=== PATIENT | female | born 1945 | race Caucasian/White ===

== ENCOUNTER 2022-07-18 20:24 | Emergency (ER) | payer MEDICARE ==
[~2022-07-18] VITALS: Ht 167.6 cm; Wt 55.6 kg
== END 2022-07-18 22:32 | disposition home or self-care (01) ==
LOC: ED 20:24
DX: B34.9 Viral infection, unspecified (principal); R10.9 Unspecified abdominal pain; R00.0 Tachycardia, unspecified; Z20.822 Contact with and (suspected) exposure to COVID-19
CPT/HCPCS: 36415; 71045; 80053; 83690; 83880; 84484; 85025; 87502; 96360; 99284-25; C9803; J7121; U0003

== ENCOUNTER 2022-07-21 10:55 | Inpatient (IN) | payer MEDICARE ==
[~2022-07-21] VITALS: Ht 167.6 cm; Wt 55.0 kg
--- OUTSIDE RECORDS SUMMARY | 2022-07-21 11:03 | XMS ---
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 Tj has no Care Guidelines for this patient. [facility] MO[facility] NOTE: Visits indicate total known visits. ED/C VISIT TRACKING (12 MO.) 2022 10:[address] [facility] [place] TYPE: Emergency COMPLAINT: - ANXIEY ATTACK 07/18/2022 20:25 [facility] [place] TYPE: Emergency COMPLAINT: - ABD PAIN AND NOT EATING INPATIENT VISIT TRACKING (12 MO.) No inpatient visits to display in this time frame [email or web address]
--- NOTE | 2022-07-21 16:10 | NUR ---
Walked pts spouse from the ER to her rm in 110 after spending 40 minutes with spouse in the ER hallway. I was asked by Dr. Iverson to see the spouse as was having and anxiety/panic attack. He was seen by the ER. He is crying through out our discussion. He is stating he is losing it and unable to cope. He was able to calm somewhat after a lengthy discussion. He is concerned is dying. All information was obtained from the spouse as the pt required sedation due to combativeness for work up. Pt has had dementia since 2017 and has been worsening. Today, pt no longer recognized her spouse of 45 years and thought she was a teenager. He states they have had one incident of wandering. She does not use any DME and is able to dress herself. He provides all household tasks, cook, shopping, cleaning. He states she is a DNR. I have requested the chart from Dr. Basurto's office. Per the office, pt was seen 1 x only in the summer to establish care. Spouse states they have no family or friends to assist. He does state Ni Trujillo Rn from the hospital is his nieghbor and the ER has called her. He states pt has a son, but they do not maintain contact. we had a lengthy discussion about placement vs CG. Spouse would like placement to a memory care or [facility]. I texted [facility] and attempted to call [facility], as these were places he requested. Intake personel were gone. Let him know I will work on this tomorrow and gave him a list of placement options.
--- NOTE | 2022-07-21 17:27 | NUR ---
PT WAS BROUGHT TO [facility] VIA STRETCHER SHE IS RESTING SOUNDLY DOES NOT RESPOND TO VOICE. R/T IS PRESENT ADJUSTS VAPOTHERM. 3 STAFF ASSIST TO TRANSFER TO THE BED. ASSESSMENT AND ADMISSION COMPLETED WITH ASSIST OF TO ANSWER QUESTIONS. BED ALARM IS SET. AND FRIEND HAVE REMAINED IN THE ROOM EVER SINCE. PT CONTINUES RESTING EYES CLOSED.
--- NOTE | 2022-07-21 18:24 | NUR ---
PT SATS ARE 100% CONSISTANTLY SINCE ADMISSION. R/T IN TO ADJUST VAPOTHERM. REMAINS IN THE ROOM, AGREES HE WILL GO HOME TO REST. PT SLEEPING SOUNDLY BED ALARM IS ON.
--- NOTE | 2022-07-21 18:56 | EKG ---
[facility] [address] [facility] [place] [address] Signed Normal sinus rhythm Left axis deviation Abnormal ECG No previous ECGs available Confirmed by BRENNEN SYLVESTER MD ([id number] on 07/21/2022 6:56:37 PM Electronically Signed By: BRENNEN SYLVESTER MD 07/21/22 1856 PATIENT NAME: DANIEL DELGADO Electrocardiogram DATE OF : 43 PHYSICIAN: BRENNEN SYLVESTER MD REPORT #: [id number] REPORT IS CONFIDENTIAL AND NOT TO BE RELEASED WITHOUT AUTHORIZATION
--- NOTE | 2022-07-21 19:19 | NUR ---
REPORT RECEIVED FROM DAY SHIFT RN. PT LYING IN BED WITH EYES CLOSED. RESPIRATIONS EVEN. VAPOTHERM IN PLACE AT 35L/35% FiO2. TELE #[address] HR 60'S. SpO2 100%. BED ALARM FOR SAFETY. WHITE BOARD UPDATED.
--- NOTE | 2022-07-21 21:01 | NUR ---
OXYGEN TITRATED TO 1L/NC. SpO2 MID TO HIGH 90'S. RESPIRATIONS EVEN. PT AROUSES BRIEFLY TO VOICE. BED ALARM FOR SAFETY. PT IN VIEW OF NURSES STATION.
--- NOTE | 2022-07-21 22:00 | NUR ---
PT RESTING WITH EYES CLOSED. ROUSES TO VOICE. PT ORIENTED TO FIRST NAME ONLY. EVENING ASSESSMENT COMPLETE. IVF INFUSING WNL. PT RESTING QUIETLY, NO SIGNS OF PAIN. SIPS OF WATER PROVIDED. ASSISTED WITH ORAL CARE. 1L/NC IN PLACE. SpO2 MID 90'S. SCATTERED WHEEZE AUSCULTATED. TELE #2. HR 70'S. WARM BLANKET PROVIDED. BED ALARM FOR SAFETY. PT IN VIEW OF NURSES STATION.
--- NOTE | 2022-07-21 22:20 | NUR ---
IN BED ALARM ALARMING. PT SITTING UP ON EDGE OF BED WITH BOTH LEGS OVER BED RAIL, TELE LEADS OFF, IV PULLED OUT AND GOWN OFF UPON ENTERING ROOM. BLOOD NOTED TO PTs LEFT ARM AND TO LINENS. PT ATTEMPTING TO GET UP OUT OF BED. THIS RN INTERVIENED AND STOPPED PT FROM GETTING OUT OF BED. OMAR NEAL AND OMAR ORDAZ IN TO ASSIST. 2PA FROM BED TO BSC. PT HAS UNSTEADY GAIT NOTED. LINENS CHANGED. 2PS FROM BSC BACK TO BED. OMAR MOLINA IN TO ASSIST. NEW GOWN PROVIDED. NEW TELE LEADS PLACED. OMAR MOLINA STARTED NEW IV. NO OTHER NEEDS FROM THIS RN AT THIS TIME.
--- NOTE | 2022-07-21 23:04 | NUR ---
PT FOUND ON SIDE OF BED WITH GOWN, IV, AND TELE LEADS REMOVED. BLOOD NOTED ON LINENS AND GOWN. BLEEDING IN LEFT AC STOPPED. SKIN CLEANED. UP TO BSC WITH 2PA TO ATTEMPT TO VOID WITH NO RESULTS. GAIT WEAK. PT BACK TO BED. ABLE TO FOLLOW SIMPLE COMMANDS. NEW IV PLACED BY SENIOR DESIGN ENGINEERING SPECIALIST RN. TELE LEADS AND CPOX BACK ON. OXYGEN TITRATED WITH ACTIVITY. SpO2 LOW 80'S WITH 1L/NC, OXYGEN TITRATED UP TO 5L WITH ACTIVITY. INCREASES RESPIRATIONS AND WHEEZE NOTED. PT BLADDER SCANNED FOR [address] SYLVESTER NOTIFIED. NEW TELEPHONE ORDERS RECEIVED FOR PRN NEB TX VERIFIED WITH READBACK METHOD. BED ALARM IN PLACE. CALL LIGHT IN REACH.
--- NOTE | 2022-07-22 00:17 | NUR ---
PT ABLE TO REPOSITION SELF TO RIGHT SIDE. EYES CLOSED. IN ROOM. BED ALARM FOR SAFETY.
--- NOTE | 2022-07-22 01:10 | NUR ---
PT LYING ON RIGHT SIDE WITH EYES CLOSED. SpO2 87% ON 1L/NC. OXYGEN TITRATED TO 4L/NC. PT SpO2 92% AT THIS TIME. HR 80.
--- NOTE | 2022-07-22 02:15 | NUR ---
PT RESTING IN BED WITH EYES CLOSED. PT NOT DISTURBED FOR VS AT THIS TIME. REMAINS IN ROOM. NO NEEDS VOCALIZED.
--- NOTE | 2022-07-22 04:11 | NUR ---
PT RESTING WITH EYES CLOSED. RESPIRATIONS EVEN AND NON LABORED AT THIS TIME. OXYGEN TITRATED DOWN TO 3L/NC. AT BEDSIDE. SANDWICH BOX PROVIDED AND COUCH MADE FOR TO STAY.
--- NOTE | 2022-07-22 05:11 | NUR ---
PT AWAKE IN BED. 2PA TO BR TO VOID. GAIT UNSTEADY. PT REQUIRES FREQUENT QUEING. ABLE TO DO OWN DUKE CARE. BACK TO BED, GORGE FAIR. INCREASED RESPIRATIONS AND WHEEZE NOTED WITH ACTIVITY. SpO2 93% ON 3L/NC. HR UP TO 100'S. SIPS OF WATER TAKEN. PT REPOSITIONED SELF TO RIGHT SIDE. BED ALARM FOR SAFETY. CALL LIGHT IN REACH. PT IN VIEW OF NURSES STATION.
--- NOTE | 2022-07-22 07:10 | NUR ---
report from Angela rn, pt eyes closed resp even, call light in reach with bed alarm on. updated whiteboard.
--- NOTE | 2022-07-22 08:50 | NUR ---
Called and spoke with Bhargavbrianna from [facility]. They do have a room for a couple. Spouse now wanting to go to [facility] with his . Face sheet, ER note, H&P, med list, nurses notes faxed.
--- NOTE | 2022-07-22 09:15 | NUR ---
Called and spoke with Marilyn from [facility]. They do have a room for a couple. Their management is out today,but she will call them.I will fax chart. Spouse now wanting to go to [facility] with his . Face sheet, ER note, H&P, med list, nurses notes faxed.
--- NOTE | 2022-07-22 10:39 | NUR ---
Spoke with Amilcar at [facility]. They will be having a room open in the near future for a couple. He asks for Chris to visit their facility. To room, and he has not returned at this time. Will leave a brochure.
--- NOTE | 2022-07-22 13:41 | NUR ---
PT ASSISTED FROM BED TO AMB 2 PERSON TO BATHROOM TO VOID 100 ML PLUS MISSED HAT. DKUE CARE AND NEW ATTENDS - ASSISTED TO BRUSH TEETH AT SINK - PT CONFUSED AND STARTING TO GET AGITATED BUT RE DIRECTABLE, LUNGS CONGESTED WITH AUDIBLE WHEEZE AND SOB NOTED WHILE WALKING WITH PT. LINEN FRESHENED AND PT BACK TO BED WITH HOB UP, ENC. OXYGEN ON AND 2L NC 93%. TELE DC. PT CONFUSED WITH CALL LIGHT IN HAND - NON PRODUCTIVE COUGH. DR WAS ABLE TO WITNESS PT MOVING IN ROOM WITH STAFF AND INCREASING AGITATION - 1 MG OF IV HALDOL GIVEN. IV FLUID AT 50 ML HR- PT REFUSING TO DRINK ORAL FLUIDS AT THIS TIME. WILL CONT. TO ENCOURAGE. SKIN WHILE UP IN BATHROOM WAS WNL INTACT.
--- NOTE | 2022-07-22 14:00 | NUR ---
Returned call to Ni Trujillo. She is with Chris, and updated given. Chart has been sent to 3 facilities for possible placement. I suggested they call and go visit to check prices and view. Chris has the placement sheet with names and phone numbers. Ni will assist him.
--- NOTE | 2022-07-22 14:39 | NUR ---
PT SITTING UP IN BED, SMILED WHEN I ENTERED HER RM. PTS' SPOUSE LINDSEY NOT IN WITH PT AT THIS TIME. HAD PLEASANT VISIT,PT THANKED ME FOR COMING. PT SEEMS PLEASANTLY CONFUSED.
--- NOTE | 2022-07-22 14:51 | NUR ---
PT OUT OF CHAIR - ALARM ON - STANDING UP TAKING OFF OXYGEN AND TRYING TO PULL OUT IV. PT ASSISTED TO WALK TO BR TO VOID -
--- NOTE | 2022-07-22 16:19 | NUR ---
CALL FROM DR HAUSER TO UPDATE ON PT STATUS - PT IN WITH ALARM - RESTLESS AND IN SIGHT OF NURSES STATION.
--- NOTE | 2022-07-22 18:27 | NUR ---
assisted pt back to bed from the bathroom, pt here and also jono family friend. pt is very flat - declined any food or drink offers from this rn, pt is refusing oxygen and fluids at this point. pt vitals attempted and she removed the bp cuff before it was done - pt was ok with us trying later. 81% room air and refuses nc oxygen at this time. temp is 97 temporal, hr 90. pt in ch with at bedside, pt very audible wheeze noted. void 300 ml when she was up to br - very confused and disoriented - restless.
--- NOTE | 2022-07-22 19:05 | NUR ---
REPORT RECEIVED FROM KAREEN Moon RN. PT SITTING UP IN CHAIR WITH EYES CLOSED. RR EVEN AND UNLABORED. ON COUCH AND FAMILY FRIEND IN ROOM. NO NEEDS REPORTED OR IDENTIFIED AT THIS TIME. CALL LIGHT IN REACH.
--- NOTE | 2022-07-22 19:50 | NUR ---
pt SITTING UP IN CHAIR. AND FAMILY FRIEND AT BEDSIDE. pt ON RA, 2L OXYGEN BY OXYMASK APPLIED. pt WEARING MASK. ENSURE DRINK PROVIDED. pt TAKING DRINKS OF VANILLA ENSURE. NO ADDITIONAL REQUESTS.
--- NOTE | 2022-07-22 20:40 | NUR ---
IN WITH OMAR CAVAZOS. PT SITTING UP IN CHAIR. SBA FROM CHAIR TO RESTROOM AND TO BED. VITALS AND I&Os COMPLETE. ASSESSMENT COMPLETE. LUNG SOUNDS WHEEZY THROUGHOUT ALL LOBES. BOWEL TONES ACTIVE. HEART RATE TACHYCARDIC. PRN MEDICATION ADMINISTERED, SEE MAR. MEDICATION ADMINISTERED CRUSHED AND IN PUDDING. PT TAKED PO CRUSHED MEDICATION WITH NO ISSUES. PT CONTINUES TO GET UP OUT OF BED AND GO BACK TO RESROOM. NO OUTPUT NOTED. PT BACK IN BED. OMAR CAVAZOS IN ROOM TO ADMINISTER PRN PAIN MEDICATION. NO OTHER NEEDS FROM THIS RN AT THIS TIME. OMAR CAVAZOS IN ROOM WITH PT.
--- NOTE | 2022-07-22 21:20 | NUR ---
THIS RN IN ROOM WITH pt FOR CLOSE MONITORING FOR SAFETY. SBA TO RESTROOM FOR VOID AND BACK TO CHAIR. VS COMPLETE. pt COMPLIANT WITH MEDICATION ADMINISTRATION IN PUDDING. SPO2 90-92% ON RA. RR 24. pt GRABS AT BACK AND STOMACH WITH OCCASIONAL GRIMACE, DOES NOT STATE SHES HAVING PAIN WHEN ASKED. PRN TYLENOL ADMINISTERED FOR COMFORT. pt UP TO RESTROOM TWO ADDITIONAL TIMES, NO VOID IN TOILET. BACK IN BED WITH ALARM SET. RT IN ROOM, APPLIES OXYGEN AND pt REMOVES. ALARM SOUNDING SEVERAL TIMES pt OUT OF BED TO ADJUST BLANKETS, STAND AT SIDE OF BED. pt REDIRECTABLE BACK TO BED. MUSIC ON TV. LIGHTS DIMMED. BED ALARM REMAINS IN PLACE.
--- NOTE | 2022-07-22 21:40 | NUR ---
IN BED ALARM ALARMING. OMAR HUTTON IN ROOM ASSISTING PT. PT STANDING AT SIDE OF BED. ASSISTED PT BACK TO BED. PROVIDED PT WITH WARM BLANKET AND WATER. SAT PTs HOB UP FOR COMFORT. HANDED PT WASH CLOTH A DISTRACTION TOOL. PT STATES "THAT IS MY PARTIAL." PT SITTING UP IN BED. AUDIBLE WHEEZING NOTED. PT REFUSES OXYGEN WHEN ATTEMPTING TO PLACE NC. PT FOLDING WASH CLOTH. BED ALARM ON. CALL LIGH IN REACH. PT IN VIEW OF NURSES STATION. NO OTHER NEEDS IDENTIFIED AT THIS TIME.
--- NOTE | 2022-07-22 23:20 | NUR ---
PT RESTING IN BED HIGH-FOWLERS. RR EVEN AND UNLABORED. PTs EYES CLOSED. NO NEEDS IDENTIFIED AT THIS TIME. CALL LIGHT IN REACH. BED ALARM ON.
--- NOTE | 2022-07-23 00:45 | NUR ---
IN BED ALARM ALARMING. PT UP AND OUT OF BED STANDING BY SINK. PT ATTEMPTS TO FILL HANDS WITH WATER AND DRINK WATER FROM HANDS. HANDED PT PTs WATER CUP. PT STATES "OH THANK YOU." ASSISTED PT BACK TO BED. PROVIDED PT WITH MORE WATER. PT SITTING UP IN BED. NO OTHER NEEDS IDENTIFIED AT THIS TIME. CALL LIGHT IN REACH. BED ALARM ON.
--- NOTE | 2022-07-23 02:27 | NUR ---
IN BED ALARM ALARMING. PT STANDING UP NEXT TO BED. PT MAKES GESTURE TO RESTROOM. SBA FROM BED SIDE TO RESTROOM. PT SITS ON TOILET AND VOIDS. PT GETS UP AND AMBULATED TO SINK AND ATTEMPTS TO DRINK WATER FROM SINK. REDIRECTED TO AND INFORMED PT HER WATER CUP WAS NEXT TO BED. SBA FROM RESTROOM BACK TO BED. PT DRINKS FROM WATER CUP. FRESH WATER PROVIDED. CHECKED PTs O2 SATS PT AT 88% ON RA. PT AGREEABLE TO NC. 2L NC PLACED AND O2 SATS INCREASE AND MAINTAIN AT 93%. PT ATTEMPTS TO REMOVE NC. INFORMED PT THE NC IS TO HELP WITH HER O2 SATS. PT AGREEABLE AND LEAVES NC IN PLACE AT THIS TIME. ASSESSMENT COMPLETE. LUNG SOUNDS WHEEZING THROUGHOUT ALL LOBED. DIMINISHED IN BRETT, LLL AND RLL. BOWEL TONES ACTIVE. HEART TONES TACHYCARDIC. PT SITTING UP IN BED RESTING. NO OTHER NEEDS IDENTIFIED AT THIS TIME. CALL LIGHT IN REACH. BED ALARM ON.
--- NOTE | 2022-07-23 02:49 | NUR ---
AFTER LEAVING ROOM PT REMOVES NC. OMAR CAVAZOS IN TO ASSIST PT AND ATTEMPT TO PLACE NC BACK ON. PT REFUSES NC. THIS RN IN ROOM PT ATTEMPTS TO GET UP FROM BED OMAR CAVAZOS LEAVING ROOM. PT AMBULATES FROM BED TO RESTROOM. SMALL VOID NOTED. PT AMBULATES BACK TO BED. OMAR CAVAZOS PROVIDED WARM BLANKET. PT LAYING IN BED HIGH-FOWLERS. PT STATES "MY PARTIAL." HANDED PT WATER. TV TURNED OFF. NO OTHER NEEDS IDENTIFIED AT THIS TIME. CALL LIGHT IN REACH. BED ALARM ON.
--- NOTE | 2022-07-23 06:11 | NUR ---
IN TO ROUND ON PT. PT RESTING IN BED WITH EYES CLOSED. RR 16 EVEN AND UNLABORED. PT ALLOWED TO REST AT THIS TIME. CALL LIGHT IN REACH. BED ALARM ON.
--- NOTE | 2022-07-23 07:21 | NUR ---
RECIEVED SHIFT REPORT. PT RESTING IN BED, AWAKE. CALL LIGHT IN REACH. BED ALARM ON.
--- NOTE | 2022-07-23 08:06 | NUR ---
PT BED ALARM GOING OFF. PT STANDING UP IN ROOM. PT ASSISTED TO BR SBA. PT LINEN CHANGED. PT ASSISTED TO CHAIR. PT SET UP FOR BREAKFAST. PT CHAIR ALARM SET. PT NC PUT ON PT. PT VITALS COMPLETE. NO NEEDS. CALL LIGHT WITHIN REACH
--- NOTE | 2022-07-23 08:50 | NUR ---
PT CHAIR ALARM GOING OFF. PT STATED RESTROOM NEEDS. PT UNABLE TO MAKE IT TO TOILET ON TIME AND HAD A BM IN UNDERWEAR AND ON BR FLOOR. PT AND BR CLEANED UP. PT GIVEN NEW BRIEF. PT ASSISTED BACK TO CHAIR. NC PLACED. CHAIR ALARM SET. NO NEEDS. CALL LIGHT WITHIN REACH
--- NOTE | 2022-07-23 09:25 | NUR ---
MORNING ASSESSMENT COMPLETE. PT DISORIENTED TO ALL BUT ABLE TO VERBALIZE FIRST NAME. PT IS UNAWARE OF SAFETY PERCAUTIONS, BED AND CHAIR ALARM ARE ON FOR SAFETY. LUNG SOUNDS DIMINISHED BILAT UPPER, COURSE BILAT LOWER LOBES. PT INSTRUCTED TO TAKE DEEP BREATHS, PT UNABLE TO FOLLOW COMMANDS. ATTEMPTED TO GIVE PT MORNING MEDS W/ PUDDING. PT UNWILLING TO TAKE MEDS, WILL REATTEMPT. NC IN PLACE ON 2L AT THIS TIME, NEEDS TO BE REORIENTED TO KEEP ON. CALL LIGHT IN REACH.
--- NOTE | 2022-07-23 09:30 | NUR ---
Spoke with pt and spouse. Pt is sitting up in a recliner with [address] Pt is now on po antibiotics. 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 Discussed with spouse pt is nearing dc and I am cont. to work on placement for them as a couple.
--- NOTE | 2022-07-23 09:47 | NUR ---
SECOND ATTEMP TO GIVE MORNING MEDS. PT WAS ABLE TO TAKE TWO SMALL BITES, REFUSED THE REST OF THE MEDICATION. WILL REATTEMPT. AT BEDSIDE. CALL LIGHT IN REACH, CHAIR ALARM ON.
--- NOTE | 2022-07-23 10:00 | NUR ---
CAlled and spoke with [facility]. They do not take pts at the end of the week, only Wednesday or Tuesdays. They do have anyone who can evaluate this pt until sometime next week.
--- NOTE | 2022-07-23 10:30 | NUR ---
Notified by Ni Trujillo, family friend, Chris no longer wants to go to [facility] with . He would like her placed. Called [facility] they do not have any beds open in their memory care. They will not accept this pt as they do not have a room in memory care. I called and spoke with Elena at [facility]. They will accept this pt without spouse residing with her. They could eval tomorrow. Planned placement for Wednesday or Wednesday.
--- NOTE | 2022-07-23 11:07 | NUR ---
Texted [facility] and they have one bed in their memory care. Chart faxed to Rhea at her request.
--- NOTE | 2022-07-23 11:19 | NUR ---
PT IN RECLINER, AWAKE. WAS ABLE TO GET MEDICATION ADMINISTERED. AT BEDSIDE. PHYSICAL FITNESS TRAINER STEVE IN ROOM AT THIS TIME. CALL LIGHT IN REACH, CHAIR ALARM ON.
--- NOTE | 2022-07-23 12:15 | NUR ---
STATED CONCERN PATIENT DOESNT SEEM INTERESTED IN EATING MEALS, UPDATED ON MEAL TREND. THIS RN ASKED HOW MUCH PT EATS AT HOME, AND HE STATED "SMALL PORTIONS". PROVIDED AN ENSURE.
--- NOTE | 2022-07-23 13:25 | NUR ---
SPOKE WITH PTS' LINDSEY. HE IS IN A MUCH BETTER PLACE MENTALLY AND EMOTIONALLY. HAS QUESTIONS REGARDING PLACEMENT. GAVE ENCOURAGEMENT WILL FOLLOW
--- NOTE | 2022-07-23 14:15 | NUR ---
REFUSED PT TO RECIEVED CT. STATES HE "DOES NOT WANT TO PUT HER THROUGH THAT". MD NOTIFIED. VERBAL ORDER TO CANCEL CT ORDER. IMAGING ALSO NOTIFIED.
--- NOTE | 2022-07-23 15:06 | NUR ---
AFTERNOON ASSESSMENT COMPLETE. PT SITTING UP IN CHAIR, AWAKE. ATTEMPTED VITALS PT REFUSED THIS RN TO TAKE BP. SPO2 WAS 96% ON 1L NC. PT WAS UNABLE TO FOLLOW COMMANDS TAKING DEEP BREATHS LISTENING TO LUNG SOUNDS, NO NEW CHANGES SINCE MORNING ASSESSMENT. AT BEDSIDE. CHAIR ALARM ON.
--- NOTE | 2022-07-23 15:12 | NUR ---
Notified by [facility] they cannot accept this pt.
--- NOTE | 2022-07-23 15:40 | NUR ---
Called and spoke with Mayra from [facility]. Asked how far out they would be to place a cg in the home. She states they could not evaluate until next . Ni Ronnie stopped at my office and is stating concern for this pt to be placed. She is concerned this will cause further issues with pts dementia. Updated I had spoke with Chris about possible CG in the home. He had requested placement and they would both go. Now that he has decided to not stay with the pt, the cost will be higher as he will not be there to provide care. I am also concerned as pt's dementia is significant, concern is she will leave the facility as it is not locked. She wants to talk with Chris and see if he will consider taking pt home with a cg.
--- NOTE | 2022-07-23 15:40 | NUR ---
Notified, [facility] person is here with brochures. Spoke with Rupal and asked if she has time to speak with Chris as he and Ni have questions. Chris happened to walk up as I was speaking with Rupal. I introduced them and she was able to give information on what their CGs can provide, hours, training. Lengthy discussion of what would be best and least traumatizing for Christine.All agree she would tolerate the home situation the best. Chris would be able to work a few hours per day while CG were there. Per Rupal they will work around his schedule, assist pt to bath, and be safe. They could try this and if it doesn't work, then seek placement. Rupal stated she would go to the [place] office and see if timeline could be moved up. Chris is going home to eat and she will call him. They will update me when they have reached a plan.
--- NOTE | 2022-07-23 15:56 | NUR ---
CHAIR ALARM SOUNDING. THIS RN IN ROOM, PT HAS O2 OFF. STATES SHE NEEDS TO USE RESTROOM. THIS RN ASSISTED PT. PT WALKED HALLWAYS, THIS RN AT PT SIDE, LOOKING FOR LINDSEY. EXPLAINED TO PT LINDSEY LEFT FOR AWHILE AND WILL BE BACK. ATTEMPTED TO HAVE LAY DOWN. PT SAT ON BED, BUT REFUSED TO LAY DOWN. BEATRIZ RN IN ROOM TO SIT WITH PATIENT.
--- NOTE | 2022-07-23 17:15 | NUR ---
PT IN ROOM, OMAR HENDERSON IN ROOM SITTING WITH PT. ATTEMPT TO GIVE SCHEDULED MEDICATION, PT REFUSING WITH REATTEMPT TO FOLLOW. CALL LIGHT IN REACH. DENIES FURTHER NEEDS. CALL LIGHT IN REACH. CHAIR ALARM OFF DUE TO NURSE BEING AT BEDSIDE.
--- NOTE | 2022-07-23 18:49 | NUR ---
RN PUSHING THIS PT IN WHEELCHAIR AROUND HALLWAY. PT CONTENT W/O ANY COMPLAINTS. PT REFUSED SCHEDULED MEDICATION, DOCUMENTED IN EMAR PT REFUSED. WILL REPORT TO NOC SHIFT.
--- NOTE | 2022-07-23 19:05 | NUR ---
REPORT RECEIVED FROM OMAR GREEN. PT SITTING IN CHAIR WITH BED ALARM ON. IN ROOM SITTING WITH PT. REQUESTING WATER. WATER PROVIDED. ENSURE PROVIDED FOR PT. NO OTHER NEEDS IDENTIFIED AT THIS TIME. CALL LIGHT IN REACH. CHAIR ALARM ON. DENIES ANY NEEDS AT THIS TIME.
--- NOTE | 2022-07-23 19:43 | NUR ---
IN TO ROUND ON PT AND . PT SITTING UP IN CHAIR AND STATES "WHERE ARE MY SHOES." PTs STATES "THEY ARE IN THE CLOSET." PT LOOKS DOWN AT FEET AND MOVES BLANKET IN LAP. PT STATES "IT'S COLD." OFFERED WARM BLANKET, WARM BLANKET PROVIDED. PT STATES "OH THAT IS NICE." VITALS COMPLETE. RR 18, PULSE 102, O2 SATS 92% ON RA, TEMPERATURE OF 98.0 TEMPORAL. DECLINES ANY NEEDS AT THIS TIME. CALL LIGHT IN REACH. CHAIR ALARM ON.
--- NOTE | 2022-07-23 21:08 | NUR ---
IN TO ROUND ON PT AND . PT SITTING UP IN CHAIR. SITTING IN CHAIR NEXT TO PT. ATTEMPTED TO HAVE PT COLOR PICTURES. PT IS UNINTERESTED IN COLORING. PT ASKING ABOUT HER SHOES AND STATES "THEY ARE IN THE CLOSET OVER THERE." 2129 GETTING READY TO LEAVE. PT STATES "I HAVE TO GO TO THE RESTROOM." SBA FROM CHAIR TO RESTROOM. VOID AND SMALL LIQUID BM NOTED. SBA FROM RESTROOM TO BED. SAYS GOODBYE TO PT AND WALKS OUT OF ROOM. PT STANDS UP FROM BED AND FOLLOWS STATING "ANN." PT CATCHES IN MCCRACKEN AND TURNS AROUND AND STATES "I AM GOING HOME I WILL BE BACK IN THE MORNING." PT STATES "I NEED TO GO TO THE RESTROOM." THIS RN SHOWS PT BACK TO ROOM AND RESTROOM. PT BACK UP AND SITTING IN BED. THIS RN OFFERED TO COMB PTs HAIR. PT SITTING ON EDGE OF BED. THIS RN ENRIQUEZ PTs HAIR AND MADHAV HAIR ONCE FINISHED. PT STATES "THAT'S NICE, THAT LOOKS GOOD." 2219 PT STATES "MY BACK" ATTEMPTED TO ADMINISTER PRN TYLENOL, PT REFUSES. PT UP AND BACK TO THE RESTROOM AND THEN BACK TO BED. WARM BLANKES PROVIDED.
--- NOTE | 2022-07-23 21:38 | NUR ---
ASSESSMENT COMPLETE. LUNG SOUNDS DIMINISHED AND EXPIRATORY WHEEZE THROUGHOUT ALL LOBES. BOWEL TONES ACTIVE. FLACC SCORE OF 4. PT GRABS AND HOLDS STOMACH AND STATES "MY STOMACH HURTS." PT UP AND BACK INTO RESTROOM AND THEN BACK TO BED ONCE FINISHED. BRUISE NOTED TO RIGHT WRIST AND LEFT AC.
--- NOTE | 2022-07-23 23:57 | NUR ---
IN BED ALARM ALARMING. PT STANDING NEXT TO BED. PT REPORTS TOILETING NEEDS. SBA FROM BED TO RESTROOM AND BACK TO BED. THIS RN SITTING IN ROOM WITH PT.
--- NOTE | 2022-07-23 23:59 | NUR ---
THIS RN SAT IN ROOM WITH THE PT FROM 2258 TO 2340. PT SAT UP IN BED AND TALKED TO THIS RN. THIS RN PUT PTs HOB DOWN SO PT COULD ATTEMPT TO GO TO SLEEP. PT LAYS ON RIGHT SIDE AND ADJUSTS PILLOWS AND RESTS IN BED. BED ALARM ON. CALL LIGHT IN REACH. PT IN VIEW OF NURSES STATION.
--- NOTE | 2022-07-24 01:06 | NUR ---
THIS RN SITTING IN ROOM WITH PT FROM 1 TO 105. PT RESING IN BED SEMI-FOWLERS. PT CLOSES EYES. RR EVEN AND UNLABORED. RR OF 18. CALL LIGHT IN REACH. BED ALARM ON. PT IN VIEW OF NURSES STATION.
--- NOTE | 2022-07-24 01:30 | NUR ---
IN ROOM PT SITTING UP IN BED. PT STANDS UP FROM BED AND WALKS AROUND ROOM STATING "WHERE ARE WE." "I DO NOT REMEMBER THIS." REORIENTED PT AND INFORMED PT SHE IS IN THE HOSPITAL. PT STATES "OH." PT STATES "I NEED TO USE THE RESTROOM." SHOWED PT THE RESTROOM AND PT AMBULATES TO TOILET AND SITS DOWN. SMALL BM NOTED. PT BACK TO BED. THIS RN TO SIT IN ROOM WITH PT.
--- NOTE | 2022-07-24 02:57 | NUR ---
IN ROOM WITH PT FROM 129 TO 239. PT UP FROM CHAIR AND WALKING MCCRACKEN WITH THIS RN. THIS RN GRABBED A WHEELCHAIR FOR PT TO SIT IN AND WE WALKED AROUND THE MCCRACKEN. 256 OMAR HUTTON MET US IN MCCRACKEN AND TOOK OVER FOR THIS RN TO TAKE A BREAK. NO NEEDS FROM THIS RN AT THIS TIME.
--- NOTE | 2022-07-24 03:30 | NUR ---
THIS RN BACK TO RESUME CARE OF PT FROM OMAR HUTTON.
--- NOTE | 2022-07-24 03:30 | NUR ---
THIS RN WALKS LAPS AROUND THE MCCRACKEN WITH PT IN WHEELCHAIR. 0415 BACK TO PTs ROOM. PT CONTINUES TO SIT IN WHEELCHAIR. PT STATES "I HAVE GOT TO GO TO SCHOOL, MY PARENTS ARE GOING TO BE WORRIED." PT CONTINUES TO TALK ABOUT PARENTS, SCHOOL AND HER PARTIAL. 0420 BRENNEN, RN IN ROOM AND OFFERS WASHCLOTH FOR PT TO WASH FACE. PT DAPS WASHCLOTH ON CHEEKS AND THEN DRYS FACE WITH A DRY WASHCLOTH. PT STATES "THANK YOU." THIS RN OFFERS PT WATER. PT TAKES SIPS OF WATER. THIS RN TO SIT IN ROOM WITH PT.
--- NOTE | 2022-07-24 04:45 | NUR ---
ASSESSMENT COMPLETE. NO CHANGES FROM PREVIOUS ASSESSMENT. 0450 PT CONTINUES TO SIT IN WHEELCHAIR. THIS RN TAKES PT IN WHEELCHAIR AND WALKS AROUND THE MCCRACKEN. [id number] NURSES STATION. PT IN WHEELCHAIR INTERACTING WITH OTHER RNs.
--- NOTE | 2022-07-24 05:45 | NUR ---
THIS RN AND PT BACK TO ROOM.
--- NOTE | 2022-07-24 05:58 | NUR ---
VITALS COMPLETE. ATTEMPTED BP X2. PT TORE OF BP CUFF BOTH ATTEMPTS.
--- NOTE | 2022-07-24 06:58 | NUR ---
0600 THIS RN WALKING PT AROUND MCCRACKEN IN WHEELCHAIR. 0658 HAND OF REPORT GIVEN TO OMAR GREEN. PT SITTING IN WHEELCHAIR WITH OMAR GREEN.
--- NOTE | 2022-07-24 07:15 | NUR ---
SHIFT REPORT RECIEVED. PT IN WHEELCHAIR BEING PUSHED AROUND HALLWAY BY OMAR CHRISTY. BROUGHT PT BACK TO ROOM, GOWN CHANGED. PT IN RECLINER, CHAIR ALARM ON FOR SAFETY. CALL LIGHT IN REACH.
--- NOTE | 2022-07-24 07:20 | NUR ---
CHAIR ALARM SOUNDING. PT STANDING UP IN ROOM. PLACED PT BACK IN WHEELCHAIR, SITTING WITH THIS RN NEAR NURSES STATION.
--- NOTE | 2022-07-24 08:38 | NUR ---
MORNING ASSESSMENT COMPLETE. PT IN RECLINER, AWAKE. OMAR URRUTIA SITTING WITH PT. PT ABLE TO TAKE MORNING MEDICATION. EXP. WHEEZE HEARD THROUGHOUT ALL LOBES. CHAIR ALARM ON. CALL LIGHT IN REACH.
--- NOTE | 2022-07-24 09:11 | NUR ---
THIS RN WITH PT FROM 0730 TO 0900. 1:1 REDICRECTION NEEDED PT IS VERY IMPULSIVE AND NOT SAFE ON HER OWN. PT WHEELED AROUND MCCRACKEN. PT BACK TO ROOM AND UP TO CHAIR WITH 1 PERSON ASSIST. COLORING SHEETS DONE (PT ABLE TO COLOR WITH SIGNIFICANT REDIRECTION AND ENCORUAGEMENT. PT MAKES SMALL ATTMPETS AND COLORS ~1CM SPACES ON COLORING SHEET. PT ASSISTED WITH BREAKFAST. PT ABLE TO FEED SLEF BUT BECOMES DISTRACTED AFTER 5 SECONDS. WITH FREQUENT REDIRECTION AND ASSISTANCE PT EATS ~15% OF HER MEAL. PT SEEN TO TAKE SIPS OF WATER FROM HER WATER BOTTLE ON HER OWN. PT RESTLESS AND TRYING TO GET UP OUT OF CHAIR STATING "I NEED TO GO HOME." PT UP TO RESTROOM. VOIDS 200ML AND HAS SMALL SEMILIQUID SOFT BROWN BOWEL MOVEMENT. PT NOT EFFECTIVE WITH SELF DUKE CARE, ASSISTED. DEPENDS PLACED. PT UP TO WHEECHAIR AND WHEELED IN MCCRACKEN. OCCUPATIONAL THERAPIST NOW WORKING WITH PT. NO ADDITIONAL NEEDS AT THIS TIME. PTS PRIMARY RN UPDATED.
--- NOTE | 2022-07-24 09:20 | NUR ---
Called and spoke with Mayra at [facility]. She did not make a plan with Chris as she could not reach him by phone. She will call now. I let her know the plan is for pt to dc today.
--- NOTE | 2022-07-24 09:21 | NUR ---
Called and spoke with Chris, he will be in shortly. He has difficulty hearing on the phone and would prefer to visit in person.
--- NOTE | 2022-07-24 09:28 | NUR ---
PT IN ROOM WITH OT AT THIS TIME.
--- NOTE | 2022-07-24 09:36 | NUR ---
Madison GROSS WHEELING PT AROUND MCCRACKEN. PT SEEMS EASILY DISTRACTED. GAVE ENCOURAGEMENT, PT NOT SURE HOW TO RESPOND.
--- NOTE | 2022-07-24 09:38 | NUR ---
PT IN RECLINER, THIS RN AT BEDSIDE. LINDSEY () ARRIVED, NOW SITTING WITH PT. CALL LIGHT IN REACH. CHAIR ALARM ON FOR WOOD.
--- NOTE | 2022-07-24 10:11 | NUR ---
Spoke with Chris, he wants to speak in a different from from his . He immediately bursts into tears and states he does not want her placed in a home. Gently reminded him as of yesterday we started working on plan for cg in the home. I asked if this is still what he is wanting. He states he wants to follow her wishes. He states concern for her abdominal pain. We discussed our discussion with Ni and they stated they did not want to put her through sedation for an US. He confirms he does not want to have her sedated as per her Advance Directive, pt would not want further treatment. He is again tearful stating he is a mess and cannot stand the thought of losing her. WE discussed plan and he does want [facility] to evaluate this pt today. He states pts sister will be here this afternoon and assist him through the weekend. Ni will also help him tomorrow. He plans on taking pt home this afternoon after [facility] can evaluate and sister arrives to assist.
--- NOTE | 2022-07-24 11:08 | NUR ---
Notified Chris would like to have a further discussion. He againis very tearful and stating his is overwhelmed. Asked if he would prefer to have pt placed and he states he wants to go home. He is just unsure of how to care for his . Friend, Ni, arrives from [place] and lengthy discussion of options for Chris. UPdated I spoke with Mayra from [facility], she will not be able to see him today but, will see him on Wednesday at 11:30. His sister in law will be here this afternoon and will stay a few days to assist him until cg are in place. Elena and Less are on their way to see him to and evaluate Christine, in case, the CG in the home plan fails. Less and Elena arrived close to noon and I introduced them to Chris and Ni. Excused myself. Plan remains for Christine to dc this afternoon to their home.
[2022-07-24] MEDS ORDERED: LEVOFLOXACIN250 MG PO (11:11)
[2022-07-24] MEDS ORDERED: QUETIAPINE FUMA25 MG PO (11:13)
--- NOTE | 2022-07-24 11:46 | NUR ---
OMAR HENDERSON SITTING WITH PT AT THIS TIME.
--- NOTE | 2022-07-24 11:59 | NUR ---
THIS RN SITTING WITH PT AT THIS TIME. PT IS CONTENT FOLDING BLANKET. NO SIGNS OF DISTRESS.
--- NOTE | 2022-07-24 12:00 | NUR ---
LUNCH DELIVERED TO PT. PT SITTING IN WHEELCHAIR AT [facility]. PT WHEELED BACK TO ROOM AND TRANSFERS SELF TO CHAIR. PT ASSISTED WITH EATING LUNCH. DECLINES MOST ATTEMPTS. TAKES ONE BITE OF GRILLED CHEESE (STARTLED BY THE ROUGHNESS OF THE FOOD STATING "OUCH, IT HURTS MY LIP." AND TAKES ONE BITE OF STRAWBERRIES. PT DECLINES ADDITIONAL FOOD DESPITE 1:1 ASSISTANCE AND ENCORUAGEMENT TO EAT. PT CONTINUES RESTING IN RECLINER, FOLDING HER BLANKET OVER AND THEN UNFOLDING TO PLACE THE BLANKET ARROUND HER SHOULDERS. PT REPEATS THIS CYCLE/TASK FOR 30 MINUTES BEFORE BECOMING AGITATED. PT TRANSFERED TO WHEELCHAIR AND OUT FOR A RIDE ARROUND THE UNIT. 1:1 OBSERVATION/ASSISTANCE PASSED OFF TO OMAR MATHUR. NO ADDITIONAL NEEDS AT THIS TIME. AWAITING [facility] EVALUATION COMPLETION WITH FAMILY. ANTICIPATING DISCHARGE AFTER EVALUATION.
--- NOTE | 2022-07-24 12:10 | NUR ---
PT IN RECLINERENAN Rodriguez RN AT BEDSIDE ASSISTING PT WITH EATING LUNCH. CALL LIGHT IN REACH. CHAIR ALARM ON FOR SAFETY.
--- NOTE | 2022-07-24 14:30 | NUR ---
FAMILY REQUESTS THAT PT SHOWER PRIOR TO DISCHARGE. THERAPUTIC COMMUNICATION DONE WITH PT REGARDING NEED AND PROCESS FOR SHOWER. PT UNABLE TO REPEAT BACK OR VERBALIZE UNDERSTANDING BUT AGREES TO SHOWER. 1 PERSON ASSIST UP TO SHOWER. PT AGITATED WITH WATER BUT CALMS WITH BACK RUB AND SHAMPOO. DUKE CARE DONE. BARRIER CREAM APPLIED. PT UP TO RESTROOM AND HAS ADDITIONAL SMALL SEMILIQUID SOFT BOWEL MOVEMENT, AND VOIDS AN ADDITIONAL 75ML YELLOW URINE. DUKE CARE PERFORMED AND BARRIER CREAM REAPPLIED. PT DRESSED IN CLOTHES FROM HOME, REFUSES TO WEAR BRA. PT REFUESES ORAL CARE. PT UNABLE TO ASSIST WITH CARES TO ANY EXTENT EXCEPT FOR DRYING HER STOMACH (DOES NOT DRY FACE OR HAIR, EVEN WITH PROMPTING). PERSON ASSISIST UP TO WHEELCHAIR. BELONGINGS PACKED AND PT WHEELED FROM MED/SURG TO FRONT OF HOSPITAL TO MEET . DISCHAGE INSTRUCTIONS REVIEWED WITH PTS AND NEIGHBOR (JEET RN) WHO IS ASSISTING WITH CARES, PER PTS 'S REQUEST. PTS AND JEET, VERBALIZE UNDERSTANDING OF INSTRUCTIONS, FOLLOW UP, AND MEDICATIONS AND STATE THEIR QUESTIONS HAVE BEEN ANSWERED. PT TRANSFERS SELF INTO CAR WITH STAND BY ASSIST. NO ADDITIONAL REQUESTS OR CONCERNS.
--- NOTE | 2022-07-24 15:28 | NUR ---
Spoke with Elena form [facility]. She is aware this pt plans on dc to home with spouse. She states if plan does not work out, pt and spouse could be evaluated next week.
== END 2022-07-24 14:50 | disposition home or self-care (01) | DRG 177 ==
LOC: ED 10:55 → MS 15:44
PROVIDERS: ADMIT Internal Medicine; ATTEND Internal Medicine
DX: J15.6 Pneumonia due to other Gram-negative bacteria (principal); J96.01 Acute respiratory failure with hypoxia; C91.10 Chronic lymphocytic leukemia of B-cell type not having achieved remission; F02.C18 Dementia in other diseases classified elsewhere, severe, with other behavioral disturbance; Z66 Do not resuscitate; Z20.822 Contact with and (suspected) exposure to COVID-19; R91.8 Other nonspecific abnormal finding of lung field; D49.1 Neoplasm of unspecified behavior of respiratory system; R10.9 Unspecified abdominal pain; G30.9 Alzheimer's disease, unspecified
CPT/HCPCS: 36415; 36600; 70450; 71045; 71260; 80048; 80053; 81001; 82803; 84484; 85025; 86850; 86900; 86901; 87502; 93005; 93010; 94640; 94760; 94799; 97162; 97167; 99285-25; A9270; C9803; J0456; J0696; J1200; J1630; J1956; J2060; J3480; J7040; J7060; Q9967; U0003